=== PATIENT | female | born 1990 | race Two or more races ===

== ENCOUNTER 2019-03-22 19:40 | Emergency (ER) | payer OTHER ==
[~2019-03-22] VITALS: Ht 152.4 cm; Wt 61.2 kg
--- NOTE | 2019-03-22 19:43 | NUR ---
ED Nurse Note: Patient in room ortho complaning of onset of dental pain.
--- NOTE | 2019-03-22 20:09 | Emergency Room Report ---
History of Present Illness General Chief Complaint: Pain Source: Patient Present Illness HPI 28-year-old female presents to the emergency department complaining of 6 out of 10 severity pain and tenderness to the front teeth in addition to a chipped tooth status post being accidentally struck by a door while he was opening x1 day. She denies loss of consciousness she denies bleeding, open wounds or loose teeth. Patient denies taking blood thinning medications. Patient denies bony tenderness to the facial bones. Patient denies epistaxis. Patient took Advil prior to arrival with some relief of her pain. She denies headache, nausea, vomiting, or dizziness. She denies any other aggravating or relieving factors and denies any additional symptoms. Allergies: Coded Allergies: No Known Allergies (Unverified , 03/22/19) Patient History Past Medical History: see triage record Past Surgical History: none Pertinent Family History: none Last Menstrual Period: 02/26/19 Reviewed Nursing Documentation: PMH: Agreed; PSxH: Agreed Nursing Documentation-PMH Past Medical History: No Stated History Review of Systems All Other Systems: negative except mentioned in HPI Physical Exam Vital Signs Date Time Temp Pulse Resp B/P (MAP) Pulse Ox O2 Delivery O2 Flow Rate FiO2 03/22/19 19:43 98.6 69 19 110/74 (86) 99 Room Air Sp02 EP Interpretation: reviewed, normal General Appearance: no apparent distress, alert, GCS 15, non-toxic Head: normocephalic, other - Dental fracture of tooth # 27, and TTP to tooth # 9 without visible fx. Teeth are Sturdy in place and not grossly mobile/loose. Eyes: bilateral eye normal inspection, bilateral eye PERRL ENT: hearing grossly normal, normal voice, other - Dental fracture of tooth # 27, and TTP to tooth # 9 without visible fx. Teeth are Sturdy in place and not grossly mobile/loose.. no evidence of epistaxis Neck: full range of motion, no bony tend Respiratory: lungs clear, normal breath sounds, speaking full sentences Cardiovascular #1: regular rate, rhythm Musculoskeletal: gait/station normal, normal range of motion, non-tender Neurologic: alert, oriented x3, responsive, motor strength/tone normal, sensory intact, speech normal, grossly normal Psychiatric: judgement/insight normal Skin: other - no bruising, no lacerations or abrasions noted. Medical Decision Making PA Attestation Dr. Wei is my supervising Physician whom patient management has been discussed with. Diagnostic Impression: Primary Impression: Fractured tooth due to trauma without complication Qualified Codes: S02.5XXA - Fracture of tooth (traumatic), initial encounter for closed fracture Additional Impression: Pain in a tooth or teeth ER Course 28-year-old female presents to the emergency department complaining of 6 out of 10 severity pain and tenderness to the front teeth in addition to a chipped tooth status post being accidentally struck by a door while he was opening x1 day. She denies loss of consciousness she denies bleeding, open wounds or loose teeth. Patient denies taking blood thinning medications. Patient denies bony tenderness to the facial bones. Patient denies epistaxis. Patient took Advil prior to arrival with some relief of her pain. She denies headache, nausea, vomiting, or dizziness. She denies any other aggravating or relieving factors and denies any additional symptoms. Ddx considered but are not limited to cellulitis, dental abscess, orbital cellulitis, d/l tooth, Tooth fracture, facial bone fracture, dental pain. Concussion just to name a few Vital signs: are WNL, pt. is afebrile H&PE are most consistent with Dental fracture of tooth # 27, and TTP to tooth # 9 without visible fx. Teeth are Sturdy in place and not grossly mobile/loose. ORDERS: none required at this time, the diagnosis is clinical ED INTERVENTIONS: None required at this time. DISCHARGE: At this time pt. is stable for d/c to home. Will provide printed patient care instructions, and any necessary prescriptions. Care plan and follow up instructions have been discussed with the patient prior to discharge. Last Vital Signs Date Time Temp Pulse Resp B/P (MAP) Pulse Ox O2 Delivery O2 Flow Rate FiO2 03/22/19 19:43 98.6 69 19 110/74 (86) 99 Room Air Disposition: HOME, SELF-CARE Condition: Stable Scripts Acetaminophen* (TYLENOL EXTRA STRENGTH*) 500 Mg Tablet 500 MG ORAL Q6H, #20 TAB 0 Refills Prov: Spring Lopez 03/22/19 Departure Forms: Return to Work Return to Work Date: Mar 25, 2019 Work Restrictions: None Other Restrictions: follow up with dentist. Return to Full Activity: Mar 25, 2019 Patient Instructions: Tooth Injuries, [id number] Additional Instructions: Take medications as directed. * Avoid eating hard foods. Follow up with a Dentist in within 3-5 days, even if your symptoms have resolved. Return sooner to ED if new symptoms occur, or current symptoms become worse. - Please note that this Emergency Department Report was dictated using [employer] worker technology software, occasionally this can lead to erroneous entry secondary to interpretation by the dictation equipment. Spring Lopez Mar 22, 2019 20:09
[2019-03-22] MEDS ORDERED: TYLENOL EXTRA500 MG ORAL (20:10)
--- NOTE | 2019-03-22 20:20 | NUR ---
ER DISCHARGE NOTE: Patient is cleared to be discharged per ERMD, pt is aox4, on room air, with stable vital signs. pt was given dc and prescription instructions, pt was able to verbalize understanding, pt id band removed without complications. pt is able to ambulate with steady gait. pt took all belongings.
[2019-03-22 22:00] VITALS: BP 110/74
== END 2019-03-22 20:20 | disposition home or self-care (01) ==
LOC: EMR 20:00
DX: S02.5XXA Fracture of tooth (traumatic), initial encounter for closed fracture (principal); W20.8XXA Other cause of strike by thrown, projected or falling object, initial encounter; Y92.511 Restaurant or cafe as the place of occurrence of the external cause; Y99.0 Civilian activity done for income or pay
CPT/HCPCS: 99282